=== PATIENT | male | born 1945 | race Caucasian/White ===

== ENCOUNTER → 2018-09-03 | Outpatient (CLI) | payer OTHER, MEDICARE | LOC: BHFA 09:15 | PROVIDERS: ATTEND Internal Medicine Cardiovascular Disease | DX: I48.91 Unspecified atrial fibrillation (principal) ==

== ENCOUNTER → 2019-02-24 | Outpatient (CLI) | payer OTHER, MEDICARE | LOC: BHFA 09:30 | PROVIDERS: ATTEND Internal Medicine Cardiovascular Disease | DX: Z01.810 Encounter for preprocedural cardiovascular examination (principal); I48.91 Unspecified atrial fibrillation; I49.5 Sick sinus syndrome ==

== ENCOUNTER 2019-02-27 07:26 | Observation (INO) | payer OTHER, MEDICARE ==
[2019-02-27] MEDS ORDERED: diphenhydrAMINE 25 MG CAP PO ONE (08:07)
[2019-02-27] MEDS ORDERED: ceFAZolin 2 GM/DEXTROSE 100 ML IV ONE (08:07)
[2019-02-27] MEDS ORDERED: DIAZEPAM 5 MG TAB PO ONE (08:07)
[2019-02-27] MEDS ORDERED: NS 1,000 ML IV ONE (08:07)
[2019-02-27] MEDS ORDERED: BACITRACIN IRRIGATION/NS 50,000 UNITS/1,000 ML BTL IRR ONE (08:07)
[2019-02-27 08:36] LABS: PLATELET COUNT 250 10^3/uL (150-400)
[2019-02-27 08:45] LABS: INR 0.95 (0.83-1.16); PROTIME(PATIENT) 12.3 SEC (12.0-15.0)
--- NOTE | 2019-02-27 09:10 | PDPROPOC ---
Sedation Plan of Care Sedation Plan of Care: vital signs stable, mental status noted, patient educated of risks, benefits, alternatives, patient can tolerate sedation ASA Classification: ASA 2 Planned drugs: fentanyl, midazolam Mallampati Score: Class 2 Mallampati Reference Image: Patient passed 3-3-2 rule?: Yes
--- NOTE | 2019-02-27 09:11 | PDHPUP ---
History & Physical Update H&P update statement: This history and physical update is based on an assessment of the patient which was completed after admission or registration (within 24 hours), but prior to the surgery/procedure. H&P update: H&P reviewed & patient examined, changes noted (3-3.5 post conversion pauses noted on Holter monitor)
[2019-02-27] MEDS ORDERED: IOPAMIDOL (ISOVUE-300) 50 ML VIAL ONE (09:19)
[2019-02-27] MEDS ORDERED: MIDAZOLAM 2 MG/2 ML VIAL ONE ×3 (09:19→10:17)
[2019-02-27] MEDS ORDERED: LIDOCAINE 1% 300 MG/30 ML SDV ONE (09:19)
[2019-02-27] MEDS ORDERED: fentaNYL 100 MCG/2 ML INJ ONE ×2 (09:19→10:17)
[2019-02-27] MEDS ORDERED: BUPIVACAINE 0.5% 30 ML SDV ONE (09:20)
[2019-02-27] MEDS ORDERED: LIDO/EPI 1% **for epidural** 30 ML SDV ONE (09:20)
--- NOTE | 2019-02-27 10:47 | EPPROC ---
Electrophysiology Procedure Note: PROCEDURE: 1. MRI conditional dual-chamber pacemaker insertion. DATE OF PROCEDURE: 02/27/2019 DEVICE: Biotronik Edora 8 DR-T Model #[id number], Serial #[id number] LEADS: The atrial lead is a Solia S 45: Model #[id number], Serial # [id number] The ventricular lead is a Solia S 53: model #[id number], Serial #[id number] COMPLICATIONS: None NURSE DISCHARGE PLANNER: Alvin Hassan MD INDICATION AND APPROPRIATE USE CRITERIA: Post conversion pauses up to 3.5 seconds PROCEDURE IN DETAIL: After informed consent was obtained and n.p.o. status was confirmed, the region of the left subclavicular fossa was cleaned, prepped and draped in a sterile fashion. Approximately 30 mL of 1% lidocaine was utilized for local anesthesia. The skin was sharply incised with a #10 blade. Electrocautery and local pressure were used for hemostasis. Sharp and blunt dissection was used to form a pacemaker pocket overlying the pectoralis major fascia. An 18-gauge Cook needle was used to gain access to the left subclavian vein x 2. J wires were advanced into the inferior vena cava under direct flouroscopic guidance. A 6-F peel-away sheath was advanced over the lateral wire. Wire and stylet were removed. The ventricular lead was manipulated with care into the RV apex under direct fluoroscopic guidance and screwed into place. The threshold was tested and found to be 1.3V at 0.4 ms width. R-wave amplitude was measured at 5.1mV. Lead impedance was 702 Ohms. The lead was sutured in place with #0 Ethibond. The medial wire was used to place a second peel-away sheath wire and dilator was removed and a second pacer lead was manipulated with care into the right atrial appendage and screwed into place. The threshold was 0.7V at 0.4 ms width. P-wave amplitude was 4.3mV, lead impedance was 507 Ohms. The peel away sheaths were removed and the leads were sutured in place with a #0 Ethibond. The pocket was thoroughly flushed and checked for bleeding. Hemostasis was established. The antibiotic soaked gauze was removed from the pocket. The atrial lead serial number was checked and placed in the upper pole lead housing of the pulse generator and set screw firmly applied. The procedure was repeated for the RV lead in the lower pole lead housing. The device was placed in the pocket and sutured in place with #0 Silk. The skin was closed with a 3-layered 3 -0 Vicryl vertical mattress interrupted suture, 2-0 Vicryl horizontal mattress interrupted suture, and an interrupted staple repair with excellent wound edge opposition and hemostasis documented. The patient returned to the post cath recovery unit in good and stable condition where a stat postoperative chest x- ray and EKG will be obtained. FINAL IMPRESSION: Successful dual-chamber pacemaker insertion without immediate complication for indication of intermittent bradycardia.
[2019-02-27] MEDS ORDERED: OXYMETAZOLINE 30 ML NASAL SPRAY EACHNARE PRN (10:52)
--- NOTE | 2019-02-27 12:43 | ASMTCMCOM ---
CM Note CM Note Notes: Chart reviewed. Patient s/p PPM insertion. Patient is and lives independently with his . Likely no needs, CM available should needs arise. Plan: TBD Date Signed: 02/27/2019 12:42 PM Electronically Signed By:Diana Mooney RN
[2019-02-28 04:34] LABS: PLATELET COUNT 223 10^3/uL (150-400)
[2019-02-28 07:59] VITALS: BP 108/71
[2019-02-28] MEDS ORDERED: ACETAMINOPHEN 325 MG TAB PO PRN (08:02)
[2019-02-28] MEDS ORDERED: ASPIRIN 81 MG CHEWABLE TAB PO SCH (09:00)
[2019-02-28] MEDS ORDERED: FLUTICASONE NASAL 120 SPRAYS/16 GM MDI EACHNARE SCH (09:00)
--- NOTE | 2019-02-28 10:06 | GDS ---
[f rep st] DISCHARGE SUMMARY DISCHARGE DIAGNOSES: 1. Paroxysmal atrial fibrillation with symptomatic post-conversion pauses status post dual-chamber B iotronik pacemaker. 2. Tricuspid insufficiency. 3. Hyperlipidemia. HOSPITAL COURSE: For detailed H and P, please see prior dictation. Briefly, the patient is a 73-yea r-old male with A history of paroxysmal atrial fibrillation who presented to our office complaining o f palpitations and dizziness. He wore a 14 day ZIO monitor and was found to have post-conversion barbra ses of up to 3-4 seconds. Given the results of his ZIO monitor and symptoms, a decision was made to proceed with elective pacemaker placement. This was performed by Dr. Hassan on 02/27/2019. He had a dual-chamber Biotronik pacemaker placed which is MRI compatible. The following day, the patient com plained of minor discomfort over his pacemaker site. He was monitored on telemetry and was paced. H is device was interrogated the following morning and working properly. A chest x-ray the day of disc harge was negative for a pneumothorax. His EKG showed AV pacing. PHYSICAL EXAMINATION: GENERAL: The patient appears in no acute distress. VITALS: Blood pressure 1 08/71, heart rate 65, oxygen saturation of 95% on room air, afebrile. LUNGS: Clear to auscultation. No wheezes, rhonchi, or crackles auscultated. CARDIAC: Regular rate and rhythm, without any signi ficant murmurs, rubs, or gallops appreciated. CHEST WALL: Pacer site is clean and intact without an y evidence of infection or hematoma. DISCHARGE MEDICATIONS: His medications are unchanged. He will resume Eliquis 5 mg twice daily tomor row morning. We will continue Nasonex, Afrin, fish oil, herbal supplement, Flonase, and aspirin 81 m g daily. Propafenone has been discontinued. PLAN: The patient is currently stable and ready for discharge home. He has been given pacer precaut ions. He will receive a call from our office on Saturday for a 1 week pacer interrogation and wound ch mehul. If he does not receive a call, he knows to contact our office. He will resume Eliquis tomorrow morning. It has been recommended that he remain off Propafenone and if he is having recurrent atria l fibrillation, antiarrhythmic therapy can be discussed at a followup visit. Greater than 30 minutes was spent coordinating the patient's care. /[id number]/MODL
--- NOTE | 2019-03-02 13:58 | CPEKG ---
Test Reason : OPEN Blood Pressure : / mmHG Vent. Rate : 055 BPM Atrial Rate : 054 BPM P-R Int : 178 ms QRS Dur : 088 ms QT Int : 453 ms P-R-T Axes : 028 -52 056 degrees QTc Int : 434 ms Sinus rhythm Left anterior fascicular block Confirmed by Joel Stephens ([id number]) on 03/02/2019 1:57:23 PM Referred By: Alvin Hassan Confirmed By:Joel Stephens
--- NOTE | 2019-03-02 13:58 | CPEKG ---
Test Reason : OPEN Blood Pressure : / mmHG Vent. Rate : 073 BPM Atrial Rate : 068 BPM P-R Int : 194 ms QRS Dur : 089 ms QT Int : 392 ms P-R-T Axes : 038 -61 055 degrees QTc Int : 432 ms Atrial-paced complexes Left anterior fascicular block Confirmed by Joel Stephens ([id number]) on 03/02/2019 1:57:09 PM Referred By: Alvin Hassan Confirmed By:Joel Stephens
--- NOTE | 2019-03-02 15:34 | CPEKG ---
Test Reason : OPEN Blood Pressure : / mmHG Vent. Rate : 061 BPM Atrial Rate : 061 BPM P-R Int : 176 ms QRS Dur : 092 ms QT Int : 447 ms P-R-T Axes : 069 -43 045 degrees QTc Int : 451 ms Atrial-paced rhythm Left axis deviation Confirmed by Joel Stephens ([id number]) on 03/02/2019 3:34:03 PM Referred By: Alvin Hassan Confirmed By:Joel Stephens
== END 2019-02-28 10:40 | disposition home or self-care (01) ==
LOC: FCATH 07:26 → F2W 10:49
PROVIDERS: ADMIT Internal Medicine Cardiovascular Disease; ATTEND Internal Medicine Cardiovascular Disease
DX: I49.5 Sick sinus syndrome (principal); I48.0 Paroxysmal atrial fibrillation; Z79.01 Long term (current) use of anticoagulants; I36.1 Nonrheumatic tricuspid (valve) insufficiency
CPT/HCPCS: 33208; 71045; 71046; 93005; C1785; C1898; J0690; J2250; J3010; Q9967

== ENCOUNTER → 2019-03-30 | Outpatient (CLI) | payer OTHER, MEDICARE | LOC: FIMAGING 11:54 ==